=== PATIENT | male | born 2000 | race Caucasian/White ===

== ENCOUNTER 2024-12-29 21:52 | Emergency (ER) | payer BC ==
[~2024-12-29] VITALS: Ht 167.6 cm; Wt 74.8 kg
[2024-12-29 22:00] VITALS: PULSE 84; RESP 18; TEMP 98.5
[2024-12-29 22:45] LABS: BASOPHILS % 0.2 % (0.0-1.0); EOSINOPHILS % 0.2 % (0.0-6.0); HEMATOCRIT 42.4 % (38.2-49.6); HEMOGLOBIN 14.6 g/dL (14.0-18.0); LYMPHOCYTES # (AUTO) 1.1 (1.0-3.2); LYMPHOCYTES % 18.7 % (18.0-39.1); MEAN CORPUSCULAR HEMOGLOBIN 27.9 pg (28-32); MEAN CORPUSCULAR HGB CONC 34.4 g/dL (31-35); MEAN CORPUSCULAR VOLUME 81.1 fL (81-99); MONOCYTES # (AUTO) 0.5 (0.2-0.8); MONOCYTES % 7.9 % (4.4-11.3); NEUTROPHILS # (AUTO) 4.3 (2.1-6.9); NEUTROPHILS % 72.8 % (38.7-80.0); PLATELET COUNT 325 x10e3/uL (140-360); RED BLOOD COUNT 5.23 x10e6/uL (4.3-5.7); RED CELL DISTRIBUTION WIDTH 11.9 % (11.7-14.4); WHITE BLOOD COUNT 5.95 x10e3/uL (4.8-10.8)
[2024-12-29 23:07] LABS: ALANINE AMINOTRANSFERASE 15 IU/L (0-55); ALBUMIN/GLOBULIN RATIO 1.9 (0.8-2.0); ALKALINE PHOSPHATASE 66 IU/L (40-150); ANION GAP 16.5 mmol/L (8-16); BILIRUBIN,TOTAL 0.5 mg/dL (0.2-1.2); BLOOD UREA NITROGEN 11 mg/dL (7-26); BUN/CREATININE RATIO 11 (6-25); CALCIUM 9.7 mg/dL (8.4-10.2); CARBON DIOXIDE 22 mmol/L (22-29); CHLORIDE 105 mmol/L (98-107); CREATINE KINASE 99 IU/L (30-200); CREATININE, SERUM 0.97 mg/dL (0.72-1.25); EST GLOMERULAR FILTRATION RATE 113 ML/MIN (>=60); GLUCOSE 116 mg/dL (74-118); POTASSIUM 3.5 mmol/L (3.5-5.1); SODIUM 140 mmol/L (136-145); TOTAL PROTEIN 7.7 g/dL (6.5-8.1)
[2024-12-29 23:18] LABS: TROPONIN I < 0.05 ng/mL (0.0-0.40)
[2024-12-30] MEDS: KETOROLAC TROMETHAMINE 30 MG/ML VIAL IV STA (00:27)
[2024-12-30 00:37] VITALS: BP 117/84; PULSE 84; RESP 18; TEMP 98.3; O2SAT 98
== END 2024-12-30 00:10 | disposition home or self-care (01) ==
LOC: ER 21:56
DX: R06.02 Shortness of breath (principal); R07.89 Other chest pain
CPT/HCPCS: 36415; 71045; 80053; 82550; 83518; 83690; 83880; 84484; 85025; 87070; 93005; 99284